=== PATIENT | male | born 1990 | race Caucasian/White ===

== ENCOUNTER 2017-10-18 11:58 | Emergency (ER) | payer BC, OTHER ==
[2017-10-18] MEDS ORDERED: AMOXicillin 250 MG CAP ONE (12:44)
[2017-10-18] MEDS ORDERED: Benzonatate 100 MG CAP ONE (12:44)
== END 2017-10-18 12:49 | disposition home or self-care (01) ==
LOC: MADERS 11:58
DX: J01.90 Acute sinusitis, unspecified (principal); H66.91 Otitis media, unspecified, right ear
CPT/HCPCS: 99283